=== PATIENT | male | born 1960 | race Caucasian/White ===

== ENCOUNTER 2018-04-13 10:35 | Inpatient (IN) | payer MEDICARE, MEDICAID ==
[~2018-04-13] VITALS: Ht 180.3 cm; Wt 180.5 kg
--- NOTE | ~2018-04-13 | DS ---
[place], [place] DISCHARGE SUMMARY NAME: ARIS SANDS JR [facility] #: [id number] UNIT #: [id number] ROOM: 309 DOCTOR: JANEY MONTANO CNP BIRTHDATE: [birth year] DOS: 04/18/2018 CHIEF COMPLAINT: "I'm ready to go home. HISTORY OF PRESENT ILLNESS: This is a 57-year-old white male who resides in an apartment by himself. He was admitted to the Behavioral Health Unit here at [facility] on 04/13/2018 due to suicidal ideations. He reported that he wanted to kill himself due to chronic all over pain and attempted to overdose on 2 Tylenol. He felt as if there were demons inside of him. Due to his emotional state, it was felt that inpatient stabilization was warranted, so he was admitted to the Behavioral Health Unit here at [facility]. SUMMARY OF HOSPITAL COURSE: The patient was admitted to the unit and was started on Cymbalta 30 mg a day. The Cymbalta was titrated over the course of time to 30 mg in the morning and 60 mg in the evening at bedtime for depression symptoms. He is on Neurontin 100 mg 3 times a day for his pain. He was also started on Latuda 40 mg daily and this was titrated to 60 mg daily to help augment the Cymbalta for the major depression. It was found that his vitamin D was low, so he was started on 50,000 units weekly and his B12 was also low, he was given 1000 mcg injection of B12. The patient has tolerated the medication changes well and has done extremely well. He has been social and attending individual and group activities. He attends to his own ADLs. There was no self-injurious behavior. There is no acting out, no yelling. He was not complaining of any type of auditory or visual hallucinations. He reports that he feels that his mood is much improved. He no longer has any suicidal ideation. He denies any medication side effects including sedation, somnolence and extrapyramidal symptoms or tardive dyskinesia. He has improved sufficiently to return home to his apartment. PSYCHIATRIC CONDITION AT DISCHARGE: The patient is dramatically improved. MEDICAL CONDITION AT DISCHARGE: The patient is alert and oriented x 4. His mood is strongly trending toward euthymia. His affect is more appropriate. There are no signs of simeon or hypomania. There are no auditory or visual hallucinations noted. No delusions or paranoia noted. His short, intermediate and long-term memories are fully intact. PHYSICAL CONDITION AT DISCHARGE: The patient has no acute physical issues that need to be addressed at this time. FUNCTIONAL AND EMOTIONAL CONDITION AT DISCHARGE: The patient is able to attend to his own ADLs and was interacting with individual and groups without difficulty. MEDICATIONS AT DISCHARGE: The patient will continue to take Depakote 1000 mg at bedtime and 500 mg in the morning. He will continue Cymbalta 30 mg in the morning and 60 mg at bedtime, and he will also continue Latuda 60 mg at bedtime. The patient is not on multiple antipsychotic medications. [place], [place] DISCHARGE SUMMARY NAME: ARIS SANDS JR [facility] #: [id number] UNIT #: [id number] ROOM: [facility] DOCTOR: JANEY MONTANO CNP BIRTHDATE: [birth year] FOLLOWUP CARE: Activity is return to normal activity. Nutrition and diet normal. The patient may continue normal diet. PSYCHIATRIC CONTINUING CARE PLAN: The patient will follow up with his psychiatrist on an outpatient basis. He reports that he has an appointment scheduled on 05/01/2018. PAIN ASSESSMENT: The patient continues to have some pain issues, but they are much improved, will follow up with a medical doctor for this. FINAL DIAGNOSIS: Major depressive disorder, recurrent. DISPOSITION: The patient is to return home to his apartment. His medications have been reconciled and the form has been filled out and signed. His prognosis is good. Janey Montano CNP CM:DISCHARG [id number] JANEY MONTANO CNP 04/18/18 1238 interface
--- NOTE | ~2018-04-13 | PR ---
[place], [place] PROGRESS NOTE NAME: ARIS SANDS JR UNIT #: [id number] ROOM: 309 DOCTOR: JANEY MONTANO CNP BIRTHDATE: [birth year] DOS: 04/15/2018 CHIEF COMPLAINT: "My leg hurts." SUMMARY OF THE VISIT: The patient was interviewed in the dining area after he had eaten breakfast. He continues to complain of leg pain. He reports that the pain is so bad that it made him feel as if he wanted to hurt himself a week ago. The patient reports that his sleep was fair last night and that his appetite is good. He reports that his mood continues to feel like it is up and down and that he is anxious at times. MENTAL STATUS EXAMINATION: The patient is alert and oriented x 4. His mood does seem to be somewhat anxious and depressed at this time. There are no signs of simeon or hypomania. There are no delusions or paranoia noted. No auditory or visual hallucinations noted. The patient continues to make occasional noises as he pursed lip breathes. PLAN: I am going to start the patient on vitamin D 50,000 units by mouth weekly due to vitamin D deficiency as well as B12 1000 mcg IM q. month due to B12 deficiency. We will continue his Cymbalta today at 30 mg twice a day and the Latuda 40 mg daily. We will plan to increase Cymbalta tomorrow to 90 mg daily. We will continue to engage the patient in individual and porter milieu activity and return him to the least restrictive environment when psychiatrically stable. Janey Montano CNP CM:PNTRANS [id number] JANEY MONTANO CNP 04/15/18 1026 interface
--- NOTE | ~2018-04-13 | EKG ---
[place], [place] ELECTROCARDIOGRAM REPORT NAME: ARIS SANDS JR UNIT #: [id number] ROOM: 309 DOCTOR: YAN DRAFT REPORT BIRTHDATE: [birth year] [facility] Test Date: 2018-04-13 Test Time: 19:19:33 Pat Name: ARIS SANDS Department: Room: 309 1 Gender: M Peanut Sorter: : 1960 Requested By: URBAN THAKKAR Order Number: [id number] Reading MD: Domenic Cruz MD Measurements Intervals [place] Rate: 122 P: 59 PA: 159 QRS: 44 QRSD: 87 T: 56 QT: 313 QTc: 446 Interpretive Statements Sinus tachycardia Baseline wander in lead(s) II,III,aVR,aVF Electronically Signed On 04-19-2018 10:42:59 PST by Domenic Cruz MD CM:EKGRPT:ELECTROCARDIOGRAM REPORT 1042 URBAN CARRERA DRAFT REPORT URBAN THAKKAR DO
--- NOTE | ~2018-04-13 | PR ---
[place], [place] PROGRESS NOTE [id number] #: [id number] ROOM: 309 DOCTOR: JANEY MONTANO CNP BIRTHDATE: [birth year] DOS: 04/17/2018 CHIEF COMPLAINT: "When can I go home." SUMMARY OF THE VISIT: The patient was interviewed as he sat on the edge of his bed in his room. He reports that he feels that he is doing very well and that his mood is improved. He denies any suicidal ideations. He denies any anxiety. He denies any auditory or visual hallucinations. He reports that he slept well last night and that his appetite has been good. MENTAL STATUS EXAMINATION: The patient is alert and oriented x 4. His mood seems to continue to be trending towards euthymia and he is definitely less depressed. There was no anxiety noted. There is no simeon or hypomania noted. No auditory or visual hallucinations noted. No delusions or paranoia noted. No agitation or aggression noted. PLAN: I am going to continue the patient's medications as prescribed. He reports that he has an appointment with his psychiatrist already scheduled for 05/01. We will plan to keep this appointment. We will continue to have the patient engage in individual and porter milieu activity. Continue fall and safety precautions. Plan to return to the least restrictive environment when psychiatrically stable, which will be as soon as tomorrow. Janey Montano CNP CM:PNTRANS [phone] JANEY MONTANO CNP 04/17/18 1602 interface
--- NOTE | ~2018-04-13 | WRIGHTHP ---
[place], [place] PATIENT HISTORY AND PHYSICAL EXAM NAME: ARIS SANDS JR [facility] #: [id number] UNIT #: [id number] ROOM: 309 DOCTOR: CALEB LÓPEZ MD BIRTHDATE: [birth year] DOS: 04/14/2018 CHIEF COMPLAINT: "I am just so depressed; I wanted to end it all." HISTORY OF PRESENT ILLNESS: This is a 57-year-old white male who was sent here from [facility]. The patient had presented to the Emergency Room after a reported suicide attempt of taking two Tylenol. The patient reported he was going to take more, but thought better of it and came to the Emergency Room. He reports ongoing depression now for months, stating the pain has also been one of the contributing factors to his depression. He has had poor sleep with difficulty falling asleep, sleep continuity disturbance, manager scheduling awakening, anergia, anhedonia, hopeless, helpless feelings, crying spells and inability to cope. The pain correlates with the time that his mother and he does not seem to be coping well with his stressors. He is admitted now to rule out organic factors, to attempt to stabilize on medication, to engage in individual and porter milieu activity, returning to the least restrictive environment when psychiatrically stable. PAST MEDICAL HISTORY: Remarkable for arthritis, asthma, COPD, coronary artery disease, hyperlipidemia, hypertension, morbid obesity, obstructive sleep apnea and seizure disorder. SOCIAL HISTORY: He does not drink alcohol, use illicit drugs or smoke cigarettes. ALLERGIES: He lists allergies to PENICILLIN, SULFA, AMOXICILLIN and NAPROXEN. STRENGTHS: Good verbal skills, ambulatory. WEAKNESSES: Poor coping skills, chronic psychiatric issues. MENTAL STATUS: He is alert and oriented. Mood does seem to be depressed. He is rather flat and constricted. He endorses multiple neurovegetative symptoms. He is able to contract for safety here and states he feels safe here. There is no hypomania or simeon. There is no gross psychosis. Memory is for the most part intact. DIAGNOSIS: Major depression, recurrent, severe. PLAN: I have already started him on Cymbalta after discontinuing his Zoloft. I will increase the Cymbalta to 30 mg twice daily, targeting 90-120 mg a day. I have discontinued his Geodon in lieu of Latuda to act as a mood stabilizer to augment the effectiveness of the antidepressant. I will also start him on Neurontin 100 mg 3 times a day to stabilize mood, decrease anxiety and help with pain control. I will recheck a valproic acid level in the morning. I am awaiting results on his vitamin D and B12 level to adjust them accordingly, engage in individual and porter milieu activity, returning to the least restrictive environment when psychiatrically stable. [place], [place] PATIENT HISTORY AND PHYSICAL EXAM NAME: SHAVON ABADPRIYAR [facility] UNIT #: [id number] ROOM: 309 DOCTOR: CALEB LÓPEZ MD BIRTHDATE: [birth year] CALEB LÓPEZ MD CM:HISPHYS:PATIENT HISTORY AND PHYSICAL EXAMINATION 0 CALEB LÓPEZ MD 04/14/18929 interface
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
[~2018-04-13 10:35] MED LIST: ACCUNEB 0.1.25 MG/1 INH; ANUSOL1 EACH PO; ARTANE2 MG PO; ASPIRIN81 M1 PO; ATIVAN0.5 MG PO; CARAFATE1 GM PO; CLEOCIN HCL300 MG PO; DEPAKOTE ER500 MG PO; GEODON20 M1 PO; GEODON20 MG PO; HYDROCODONE BIT1 T11 PO; MEDROL DOSEPAK4 MG PO; PRAVACHOL40 MG PO; PRAVASTATIN SOD20 MG PO; PRILOSEC40 MG PO; PROTONIX40 MG PO; PROVENTIL0.09 MG/AC IH; RISPERDAL3 MG PO; ROBAXIN500 MG PO; ROBITUSSIN DM 105 ML PO; SALINE 90 ML90 ML NAS; TOPROL XL25 MG PO; ULTRAM50 MG PO; VIBRAMYCIN100 MG PO; VICODIN 500 MG-1 TAB PO; ZITHROMAX Z PA250 MG PO; ZITHROMAX250 MG PO
[2018-04-13] MEDS ORDERED: Depakote500 MG PO (10:55)
[2018-04-13] MEDS ORDERED: ZOLOFT100 MG PO (10:58)
[2018-04-13] MEDS ORDERED: PROPRANOLOL HCL10 MG PO (10:58)
[2018-04-13] MEDS ORDERED: LASIX40 MG PO (10:59)
[2018-04-13] MEDS ORDERED: POTASSIUM CHLO20 ME3 PO (10:59)
[2018-04-13] MEDS ORDERED: IBU800 M2 PO (11:00)
[2018-04-13] MEDS ORDERED: PRILOSEC20 M1 PO (11:00)
[2018-04-13] MEDS ORDERED: ATIVAN1 MG PO (11:01)
[2018-04-13] MEDS ORDERED: IMDUR SA30 MG PO (11:01)
[2018-04-13] MEDS ORDERED: DELTASONE1 MG PO (11:08)
--- NOTE | 2018-04-13 14:54 | NUR ---
ARIS SANDS JR a 57 year old M admitted via wheel chair from the OTHER as a voluntary admission. Arrived on unit at 1454. ALLERGIES: PCN, SULFA, NAPROXEN. Vital signs are: [id number] 136/85, SPO2 96% RA. The client signed the following forms with stated understanding: Authorization For The Release of Medical Information, Clothing List, Consent to Voluntary Admission and Hospitalization, Consent and Release Forms/Receipt of Rights, Acknowledgement of Advance Directive Information, Behavioral Health Consent Form, and Informed Consent of Medications. Admitted under the services of Dr. MARIBEL GONSALEZ,[facility]. A search was conducted and hazardous articles were removed. Client was oriented to the unit. JEREMIAH VILLANUEVA
[2018-04-13 14:58] VITALS: BP 136/85
--- NOTE | 2018-04-13 14:58 | NUR ---
MESSAGE LEFT FOR STEFANIE MOREIRA RE: NEW ADMISSION.
[2018-04-13 15:02] VITALS: BP 136/85
--- NOTE | 2018-04-13 15:17 | NUR ---
SOKE WITH RE: PT SUCIDE RISK SCORE OF 27 AND PT ATTEMPT TO OVERDOSE ON 2 EXCERDIN AND PT STATED TO STAFF "I WAS GOING TO TAKE THE WHOLE BOTTLE BUT I STOPPED." ADVISED DR THAT PT IS FUTURE FOCUSED "TO GET BETTER AND GET BACK HOME, NO PAIN, NO MORE PANIC ATTACKS, AND STAY IN MY APARTMENT. I DON'T WANT TO GO TO A PENITENTIARY I WANT TO STAY IN MY APARTMENT." PER CONTIUE ROUTINE SAFETY CHECKS. PT PLACED IN ROOM 309, CLOSE TO NURSES'S STATION. PT BELONGINGS SEARCHED AND INVENTORY CONDUCTED, NO ISSUES NOTED. WILL CONTINUE TO MONITOR.
--- NOTE | 2018-04-13 15:31 | NUR ---
SPOKE WITH AT [phone] RE: CONSULT FOR MEDICAL MANAGEMENT, PER PLACE CONSULT UNDER HIMSELF.
--- NOTE | 2018-04-13 16:55 | NUR ---
psychosocial hx completed this date.
[2018-04-13 19:10] LABS: BASO % 0.3 % (0.0-1.0); EOS # 0.1 10*3/uL (0.0-0.4); EOS % 1.7 % (1.0-4.0); HEMATOCRIT 37.8 % (42.0-52.0); HEMOGLOBIN 12.4 g/dl (14.0-18.0); LYMPH # 1.4 10*3/uL (1.3-4.4); MEAN CELL VOLUME 92.9 fl (80.0-94.0); MEAN CORPUSCULAR HGB 30.5 pg (27.0-31.0); MEAN CORPUSCULAR HGB CONC 32.8 g/dl (33.0-37.0); MEAN PLATELET VOLUME 10.9 fl (9.6-12.3); MONO # 0.5 10*3/uL (0.1-1.0); MONO % 6.7 % (3.0-9.0); NEUT # 5.1 10*3/uL (2.3-7.9); PLATELET COUNT AUTOMATED 149 10*3/uL (130-400); RED BLOOD COUNT 4.07 10*6/uL (4.50-5.90); RED CELL DISTRI WIDTH 13.9 % (0-14.5); WHITE BLOOD COUNT 7.1 10*3/uL (4.8-10.8)
--- NOTE | 2018-04-13 19:22 | NUR ---
EKG COMPLETED AT THIS TIME. DR THAKKAR UPDATED ON RESULTS. STATED HE IS RECONCILING HOME MEDS AT THIS TIME AND WILL PLACE AN ORDER FOR THE ELEVATED HEART RATE OF 122.
[2018-04-13 19:27] LABS: ALBUMIN 3.1 gm/dl (3.1-4.5); ALKALINE PHOSPHATASE 64 U/L (45-117); BUN 8 mg/dl (7-24); CHLORIDE 105 mmol/L (98-107); CREATININE 0.95 mg/dL (0.70-1.30); POTASSIUM 3.6 mmol/L (3.5-5.1); SGOT/AST 13 IU/L (3-35); SGPT/ALT 19 U/L (12-78); SODIUM 141 mmol/L (136-145); TOTAL PROTEIN 6.4 gm/dL (6.4-8.2)
[2018-04-13 19:58] VITALS: BP 148/67
--- NOTE | 2018-04-13 20:24 | NUR ---
PT C/O PAIN TO LEFT SIDE OF BODY WITH A RATING OF 7 OUT OF 10. OFFERED PRN TYLENOL. PT INITIAL REFUSED. WHEN ASKED AGAIN PT STATED HE WOULD TAKE THE TYLENOL. PRN TYLENOL 650 MG GIVEN AT THIS TIME. WILL MONITOR EFFECTIVENESS OF MEDICATION.
--- NOTE | 2018-04-13 20:31 | NUR ---
P: PAIN TO LEFT SIDE OF BODY I: 1:1 PROVIDED, ASSESSED FOR PAIN. OFFER PRN TYLENOL. IDENTIFY TECHNIQUES TO ALLEVIATE PAIN. R: PT STATED HIS PAIN WAS 7/10. TYLENOL PROVIDED AT 2017. PT ASSISTED WITH IDENTIFYING TECHNIQUES TO ALLEVIATE PAIN. P: CONTINUE TO ASSESS FOR PAIN. CONTINUE TO ASSIST PT IN IDENTIFYING TECHNIQUES TO ALLEVIATE PAIN. PT DENIED SI AT THIS TIME. CONTRACTED FOR SAFETY. MEDICATION COMPLAINT WITHOUT DIFFICULTY. CONTINUES TO MAKE INAPPROPRIATE NOISES. PT REQUESTED TO SLEEP WITHOUT CLOTHING. PT AGREED TO REMAIN COVERED WITH BLANKETS. PT INQUIRED ABOUT LENGTH OF STAY ON THE UNIT AND THIS WAS EXPLAINED TO THE PT THIS IS UP TO THE DR AND HOW FAST HE IS STABILIZED ON MEDICATION.
--- NOTE | 2018-04-13 21:00 | NUR ---
24 HR chart check completed.
--- NOTE | 2018-04-13 21:30 | NUR ---
PT RESTING QUIETLY IN BED. NO S/S OF PAIN NOTED. WILL CONTINUE TO MONITOR.
--- NOTE | 2018-04-14 02:13 | NUR ---
PT AWAKE AND SITTING IN ROOM. CALM . PT PROVIDED WITH DRINK AT THIS TIME.
--- NOTE | 2018-04-14 05:37 | NUR ---
PT SLEPT APPROXIMATELY 8 HOURS THIS SHIFT.
[2018-04-14 07:36] VITALS: BP 166/72
[2018-04-14 07:45] LABS: BASO % 0.5 % (0.0-1.0); EOS # 0.1 10*3/uL (0.0-0.4); EOS % 1.6 % (1.0-4.0); HEMATOCRIT 38.3 % (42.0-52.0); HEMOGLOBIN 12.7 g/dl (14.0-18.0); LYMPH # 1.5 10*3/uL (1.3-4.4); LYMPH % 23.4 % (27.0-41.0); MEAN CELL VOLUME 92.5 fl (80.0-94.0); MEAN CORPUSCULAR HGB 30.7 pg (27.0-31.0); MEAN CORPUSCULAR HGB CONC 33.2 g/dl (33.0-37.0); MEAN PLATELET VOLUME 11.1 fl (9.6-12.3); MONO # 0.5 10*3/uL (0.1-1.0); MONO % 7.7 % (3.0-9.0); NEUT # 4.3 10*3/uL (2.3-7.9); NEUT % 66.6 % (47.0-73.0); PLATELET COUNT AUTOMATED 157 10*3/uL (130-400); RED BLOOD COUNT 4.14 10*6/uL (4.50-5.90); RED CELL DISTRI WIDTH 14.1 % (0-14.5); WHITE BLOOD COUNT 6.4 10*3/uL (4.8-10.8)
[2018-04-14 08:20] LABS: ALKALINE PHOSPHATASE 64 U/L (45-117); BUN 8 mg/dl (7-24); CHLORIDE 104 mmol/L (98-107); CHOLESTEROL 219 mg/dL (<200); CREATININE 0.75 mg/dL (0.70-1.30); HDL CHOLESTEROL 40 mg/dl (40-60); LDL CHOLESTEROL 141 mg/dL (9-159); POTASSIUM 3.7 mmol/L (3.5-5.1); SGOT/AST 14 IU/L (3-35); SGPT/ALT 18 U/L (12-78); SODIUM 139 mmol/L (136-145); TOTAL PROTEIN 6.5 gm/dL (6.4-8.2); TRIGLYCERIDES 191 mg/dl (<150); VLDL CHOLESTEROL 38 mg/dL (6-40)
--- NOTE | 2018-04-14 08:20 | NUR ---
PRN TYLENOL 650MG GIVEN FOR PT C/O PAIN "ALL OVER". PT REPORTS PAIN IS "LIKE A 4 OR 5" OUT OF 10
[2018-04-14 08:29] LABS: VALPROIC ACID (DEPAKENE) 19.4 ug/ml (50-100)
--- NOTE | 2018-04-14 08:40 | NUR ---
DR. RENE AND TEAM ON UNIT AT THIS TIME.
[2018-04-14 09:00] LABS: VITAMIN D, 25-HYDROXY 19.3 ng/mL (30-100)
--- NOTE | 2018-04-14 12:31 | NUR ---
DR. BYNUM CALLED RE:PT HOME MED LIST, AND HOW THE MEDS WERE VERIFIFED. ADVISED THAT PT CAME FROM [facility] AND THE MEDS THEY HAD LISTED WERE ATIVAN, DEPAKOTE, GEODON, PREDNISONE AND TOPROLOL. ADVISED THAT THIS NURSE CONTACTED [facility], [facility], AND SPOKE STEPH THE PHARMACIST RE: AN UPDATED MED LIST WHICH INCLUDED DEPAKOTE, TOPROL, PROPANOLOL, ZOLFT, POTASSIUM, LASIX, PRILOSEC, IBUPROFEN AND IMDUR. NO FURTHER ORDERS AT THIS TIME.
--- NOTE | 2018-04-14 15:02 | NUR ---
PM GROUP/GAMES PT ATTENDED THE FIRST PART OF GROUP BUT DID NOT PARTICIPATE. PT DID NOT EXPRESS ANY HOPELESSNESS OR DEPRESSION AT THIS TIME. PT WILL CONTINUE TO BE ENCOURAGED TO ATTEND AND PARTICIPATE IN GROUP.
[2018-04-14 19:46] VITALS: BP 134/88
--- NOTE | 2018-04-14 22:04 | NUR ---
P: INAPPROPRIATE NOISES I: 1:1, ALLOWED PT TIME TO VENT FEELINGS. ENCOURAGE MEDICATION COMPLAINCE, ENCOURAGED PT TO GO TO QUIET ROOM OR HIS ROOM TO MAKE INAPPROPRIATE NOISES. R: PT VERBALLY AGREED TO RETURN TO HIS ROOM TO MAKE INAPPROPRIATE NOICES. MEDICATION COMPLIANT. PT STATED HE MAKES THE NOISES TO GET RID OF THE DEAMONS. P: CONTINUE TO OFFER 1:1 TO ALLOW PT TIME TO VENT FEELINGS. CONTINUE TO ENCOURAGE MEDICATION COMPLIANCE AND ENCOURAGE PT TO GO TO A PRIVATE ROOM TO MAKE INAPPROPRIATE NOISES.
--- NOTE | 2018-04-14 22:30 | NUR ---
24 HR chart check completed.
--- NOTE | 2018-04-15 05:59 | NUR ---
PHYSICAL THERAPY Nursing screen recieved. PT orders also recieved. Thank you. Poppy Yarbrough,PT
--- NOTE | 2018-04-15 06:01 | NUR ---
PT SLEPT APPROXIMATELY 2 HOURS THIS SHIFT INTERRUPTED.
[2018-04-15 07:20] VITALS: BP 123/78
--- NOTE | 2018-04-15 08:00 | NUR ---
PHYSICAL THERAPY PAtient evaluated on 3, full evaluation to follow. Continue with PT as per plan of care with fall, unit three and significant edema LLE precautions. Patient issued unit wh walker to utilize until edema and pain decrease LLE. Home, as prior, for d/c planning with home health RN, PT and aides recommended. PAtient is moderate complexity via chart review, tests and evaluation: 59792. Thank you for this referral. Poppy Yarbrough,PT
--- NOTE | 2018-04-15 12:58 | NUR ---
Sameer was evaluated by occupational therapy this date to assess his ADL and functional transfer assist level, strength, and balance. Sameer likes to be called Narcisa. He c/o pain in his left calf and left shoulder with activity and weight bearing, 4 Thaddeus Sesay. He frequently blows air through his lips with all movements and ADL activities. Per NSG, he does this throughout the day randomly with or without exertion. He requires increased assist with lowerbody dressing secondary to left sided body pain. Continue OT until D/C home with [facility]. Lindsay Harrison OTR/L
--- NOTE | 2018-04-15 13:31 | NUR ---
PATIENT IS ALERT AND ORIENT TO PERSON, PLACE, TIME AND SITUATION; ABLE TO VOICE NEEDS. MOOD IS DEPRESSED, STATES HE IS FEELING BETTER. DENIES ANY HALLUCINATIONS, DELUSIONS, HI/SI. STATES THAT LEFT LOWER LEG ACHES, PROVIDED PATIENT WITH ROUTINE MEDICATIONS FOR PAIN. PREOCCUPIED WITH LEFT SIDED PAIN AND WHEN HE IS GOING HOME. PATIENT HAS HAD A COUPLE OF EPISODES OF GROWLING AND MAKING LIP NOISES WITH DEEP BREATHING, STATES HE DOES NOT KNOW WHY HE DOES IT. STATES HE HAS BEEN DOING IT EVER SINCE IS MOM . REDIRECT NEEDED AND PATIENT BECOMES AWARE AND STOPPED THIS THESE TYPES OF NOISES. INDEPENDENT WITH ACTIVITIES OF DAILY LIVING, CONTINENT OF BOWEL AND BLADDER. SET UP FOR MEALS, INTAKES ARE GOOD WITH ADEQUATE FLUID. AMBULATORY WITH STEADY GAIT. MEDICATION COMPLAINT WITH EDUCATION PROVIDED. Q 15 MINUTE SAFETY CHECKS MAINTAINED. INTERACTIVE WITH STAFF. VENOUS ULTRASOUND OF LLE COMPLETED AND DR. BYNUM NOTIFIED OF RESULTS. CONTINUE TO MONITOR MOOD AND THOUGHTS OF SUICIDAL IDEATIONS. PROVIDE ONE ON ONE AND REDIRECTION NEEDED.
--- NOTE | 2018-04-15 15:28 | NUR ---
Shift chart check completed.
--- NOTE | 2018-04-15 15:43 | NUR ---
PATIENT RECIEVED VIT B 12 1000MCG IM INJECTION TO RIGHT DELTOID AND TOLERATED WELL.
--- NOTE | 2018-04-15 17:28 | NUR ---
P: PURSE LIP BREATHING RESEMBLING HORSE NOISE I: PROVIDING ONE ON ONE, REDIRECTION, MUSIC THERAPY WITH REALAXATION TECHNIQUES AND AMBULATION WITH STAFF R: EFFECTIVE P: CONTINUE NON-PHARMALOGICAL INTERVENTIONS
--- NOTE | 2018-04-15 17:43 | NUR ---
AMBULATED WITH PT DOWN HALLWAY WITH WHEELED WALKER MAKING 2 LAPS BEFORE PT BECAME FATIGUED. DURING THIS TIME PT WOULD RANDOMLY DO BREATHING WITH "FLACCID" LIP MOVEMENTS BUT WHEN REMINDED TO NOT HAVE " LAZY LIPS" AND HOW TO DO PURSED LIP BREATHING PT WOULD MAKE A CONSCIENCE BREATHING PATTERN WHICH HE SAID HELPED HIM ALOT. CONTINUE TO REDIRECT NEEDED, PT ALSO HAS BEEN REDIRECTED FREQUENTLY TO KEEP SOCKS ON HIS FEET, PT STATES HE CANNOT PLACE THEM ON HIMSELF AND HIS SHOES SOMETIMES HURT HIS FEET. NURSES PLACED SOCKS BACK ON FEET ON 2 DIFFERENT OCCASIONNS THIS EVENING
[2018-04-15 19:41] VITALS: BP 123/67
--- NOTE | 2018-04-15 21:47 | NUR ---
24 HR chart check completed.
--- NOTE | 2018-04-15 23:01 | NUR ---
P: INAPPRPRIATE NOISES I: 1:1, REDIRECT PT TO PT ROOM OR QUIET ROOM, ALLOW PT TIME TO VENT FEELINGS, ALLOW PT TO WATCH Perfect Audience GAME. R: EFECTIVE DURING THE FOOTBALL GAME. PT STARTED MAKING INAPPROPRIATE NOISES ONCE HE WAS IN HIS ROOM. P: CONTINUE TO OFFER 1:1 AND TIME FOR PT TO VENT FEELINGS. CONTINUE TO REDIRECT PT WHEN NEEDED. CONTINUE TO ASSIST PT IN IDENTIFYING NONPHARMACOLOGICAL TECHNIQUES TO AVOID MAKING THESE SOUNDS.
--- NOTE | 2018-04-16 00:23 | NUR ---
24 HR chart check completed.
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
[2018-04-16 06:38] LABS: BUN 10 mg/dl (7-24); CHLORIDE 100 mmol/L (98-107); CREATININE 0.72 mg/dL (0.70-1.30); POTASSIUM 3.8 mmol/L (3.5-5.1); SODIUM 137 mmol/L (136-145)
--- NOTE | 2018-04-16 06:52 | NUR ---
PT SLEPT APPROXIMATELY 4 HOURS THIS SHIFT. Q15 MINUTE SAFETY CHECKS MAINTAINED.
[2018-04-16 07:48] VITALS: BP 139/74
--- NOTE | 2018-04-16 09:08 | NUR ---
LOVENOX GIVE PER ORDER IN LEFT LOWER QUADERANT. PATIENT TOLERATED THE PROCEDURE VERY WELL.
--- NOTE | 2018-04-16 10:20 | NUR ---
DR RENE ON UNIT TO SEE PATIENT
--- NOTE | 2018-04-16 12:00 | NUR ---
Shift chart check completed.
--- NOTE | 2018-04-16 12:16 | NUR ---
P- INAPPROPRIATE NOISES, PURSED LIP BREATHING SOUNDING LIKE A HORSE. I- OFFERED A QUIET AND PRIVATE AREA TO MAKE NOISES. 1:1 TO ALLOW TO TALK, VENT FEELINGS. DIVERSIONAL ACTIVITIES PROVIDED. ASSESSED FOR ANY MORE SI AND HAD VERBAL CONTRACT FOR SAFETY. R- PATIENT DENIES HAVING ANY HALLUCINATIONS OR DELUSIONS AT THIS TIME. HE PREVIOUSLY TOLD A NURSE HE MAKES THESE NOISES TO SCARE OFF THE DEMONS, DENIES THIS TO THIS NURSE. DENIES SI AT THIS TIME, AGREED TO VERBALLY CONTRACT FOR SAFETY. DIVERSIONAL ACTIVITIES WERE EFFECTIVE FOR A LITTLE BIT, WOULD START MAKING INAPPROPRIATE NOISES AGAIN WITH HIS MOUTH. P- CONTINUE TO MONITOR FOR ANYMORE SUICIDAL IDEATION AND HAVE VERBALLY CONTRACT FOR SAFETY EVERY SHIFT. MONITOR INAPPROPRIATE NOISES AND PROVIDE DIVERSIONAL ACTIVITIES, 1:1 TO EXPRESS FEELINGS AND TO TALK, AND A PRIVATE PLACE TO GO. MONITOR FOR HALLUCINATIONS OR HEARING DEMONS. Q15 MINUTE CHECKS MAINTAIN FOR SAFETY. SEIZURE PRECAUTIONS INPLACE.
[2018-04-16 20:22] VITALS: BP 147/91
--- NOTE | 2018-04-16 23:34 | NUR ---
PT WITHDRAWN TO SELF, GUARDED. PT ENCOURAGED TO VERBALIZE FEELINGS. PT GIVEN 1:1. ENCOURAGED TO COME OUT FOR HS SNACK AND TV WITH PEERS. PT AGREEABLE TO COMING OUT OF ROOM FOR SNACK. STATED "I MEAN, I THINK I AM BETTER THAN WHEN I GOT HERE. I THINK MY LEG IS HEALING, BUT I DON'T KNOW" CONTINUE TO ENCOURAGE MEDICATION COMPLIANCE, ENCOURAGE PARTICIPATION IN GROUP THERAPY/ACTIVITY FOR SOCIALIZATION AND SUPPORT. ENCOURAGE PT TO VERBALIZE FEELINGS WITH STAFF.
--- NOTE | 2018-04-17 06:36 | NUR ---
PT SLEPT PAST 2130 WITH SOME BATHROOM AWAKENINGS. PT WOKE FOR ONE HOUR [phone] TO SIT IN QUIET ROOM. PT REDIRECTED SELF BACK TO BED AND SLEPT UNTIL 0600
--- NOTE | 2018-04-17 07:15 | NUR ---
PHYSICAL THERAPY Patient seen this am 1:1 for therapy visit and was sitting in activity room chair upon therapist arrival. Patient reports mild L medial ankle pain / stiffness which he states comes and goes at times. Patient instructed and performed several seated ankle / B LE therex x 10 reps each, followed by several sit to stand transfers, SBA x 1. Patient ambulates with use wh walker support to promote smoother tawana with decreased c/o L ankle pain, SBA, 75'x 2, demonstrating a little increased fatigue upon return to activity room chair. Patient stated his ankle felt better following gait ex and remained in chair under [facility] staff Supervision. Will continue per POC as tolerated, total treatment time 23 minutes. Chepe Modi, STREET LIGHT REPAIRER
[2018-04-17 07:18] VITALS: BP 135/74
--- NOTE | 2018-04-17 07:35 | NUR ---
OT NOTE Pt was seen this A.M. 1:1 for 15 minute OT session. Upon arrival pt was sitting upright in chair in dining room, pt identified by name and . Pt had reports of L leg pain however did not rate on 0-10 pain scale. While sitting in chair requested for pt to vanessa socks and pt reported he was unable. Pt trialed and was unable to complete full forward flexion leaving him unable to reach his feet. Trialed compensatory strategies of bring his leg up to his other knee and pt was unable to bring his leg up all the way still being unable to reach. Pt required maxA for donning socks. Pt doffed socks with supervision while compensating by using his other foot and pulling sock off. Functional mobility completed to his bathroom with SBA and use of w/w for UE support. There pt stood at commode and completed toileting task with distant supervision followed by standing sink side while washing his hands and face with SBA. Pt was able to tolerate sink side static standing for aprox 4 minutes before going back to dining room to sit. Pt was left sitting upright in dining room chair under [facility] staff supervision. Continue with rec D/C plan to home with home health. KIA Steele/Driss
--- NOTE | 2018-04-17 09:30 | NUR ---
ON UNIT TO ASSESS PT.
--- NOTE | 2018-04-17 11:03 | NUR ---
PATIENT IS ALERT TO PERSON, PLACE, TIME AND SITUATION; ABLE TO VOICE NEEDS. MOOD IS STABLE. DENIES ANY HALLUCINATIONS, DELUSIONS, HI/SI OR PAIN. COMPLAINS OF LEFT FOOT DISCOMFORT. PATIENT WORKING WITH PHYSICAL THERAPY DURING AMBULATIONS USING WALKER. NO FURTHER COMPLAINT OF PAIN. INDEPENDENT WITH ACTIVITIES OF DAILY LIVING, CONTINENT OF BOWEL AND BLADDER. SET UP FOR MEALS, INTAKES ARE GOOD WITH ADEQUATE FLUIDS. NO DEEP BREATHING WITH MAKING LOUD NOISES DURING EXHALING RESEMBLING A HORSE NOTED. PATIENT INTERACTIVE WITH STAFF AND PARTICIPATES IN GROUP SESSION. MEDICATION COMPLAINT WITH EDUCATION PROVIDED. Q 15 MINUTES SAFETY CHECKS MAINTAINED. CONTINUE TO MONITOR FOR SUICIDAL IDEATIONS, PROVIDE ONE ON ONE. PATIENT STATES MEDICATIONS ARE HELPING AND HE IS READY TO GO HOME.
--- NOTE | 2018-04-17 11:37 | NUR ---
AM GROUP THERAPY SPENT 1:1 TIME WITH PT. PT OPENLY DISCUSSED ISSUES WITH CHILDHOOD AND REASONING FOR SUICIDAL IDEATIONS. PT COGNITIVE LEVEL LOW AND CHILDLIKE. PT EXPRESSED INTERRESTS IN MOVIES AND VIDEO GAMES. PT COPING SKILLS FOR ANXIETY HAVE BEEN WALKING UNTIL RECENT COMPLAINT OF PAIN. PT EXPRESSED WILLINGNESS TO TRY NEW ACTIVITIES. PT WILL BE DISCHARGED FROM THE UNIT TOMORROW.
--- NOTE | 2018-04-17 11:46 | NUR ---
DR. ALLEN NOTIFIED OF PODIATRY CONSULT FOR LEFT ANKLE PAIN AND REQUESTING A BRACE.
--- NOTE | 2018-04-17 15:03 | NUR ---
PM GROUP/MUSIC THERAPY PT CHOSE NOT TO ATTEND AFTERNOON GROUP. PT STATED,"MY LEG IS REALLY HURTING, I NEED TO STAY OFF OF MY FEET." PT WAS ENCOURAGED AND TOLD HIS FEET COULD BE ELEVATED, BUT PT REFUSED. PT REMAINED IN HIS ROOM. PT WILL BE DISCHARGED FROM THE UNIT TOMORROW.
[2018-04-17 19:12] VITALS: BP 137/89
--- NOTE | 2018-04-17 20:53 | NUR ---
TYLENOL 650MG GIVEN FOR C/O LEFT ANKLE PAIN.
--- NOTE | 2018-04-17 22:00 | NUR ---
PT CURRENTLY RESTING IN ROOM. PRN EFFECTIVE AT THIS TIME.
--- NOTE | 2018-04-18 05:15 | NUR ---
PT RESTLESS, WITHDRAWN TO SELF. ENCOURAGE PT TO INTERACT WITH STAFF AND PEERS. ENCOURAGE VERBALIZATIONS OF THOUGHT AND FEELINGS, PROVIDING EMOTIONAL SUPPORT. PT SITTING IN ROCKING CHAIR IN QUIET ROOM, ROCKING REPEATEDLY, MAKING BIZARRE NOISES. PT DID VERBALIZE NEEDS TO STAFF, REQUESTING SNACK AND DRINK AT THIS TIME, PROVIDED BY STAFF. CONTINUE TO ENCOURAGE INTERACTION WITH PEERS. ENCOURAGE PT TO ATTEND GROUP THERAPY/ACTIVITIES. ENCOURAGE CONTINUED MEDICATION COMPLIANCE. ENCOURAGE VERBALIZATIONS OF WANTS/NEEDS WELL THOUGHTS AND FEELINGS.
--- NOTE | 2018-04-18 07:12 | NUR ---
OT NOTE Pt was seen this A.M. 1:1 for 17 minute OT session. Upon arrival pt was sitting upright in dining room, pt identified by name and . Pt had reports of L ankle pain, however did not rate on 0-10 pain scale. Requested for pt to vanessa his socks and pt stated "I can't". Trialed compensatory stratagies and pt still required maxA for donning his socks due to poor forward flexion and being unable to cross leg over his knee. Functional mobility completed to his bedroom with SBA and use of w/w for UE support. There he stood sink side while washing his hands and face with SBA after set-up. Pt was able to tolerate aprox 5 minutes of static standing before sitting due to fatigue and ankle pain. Pt returned to chair in dining room where he was left under [facility] staff supervision. Continue with rec D/C plan to home with home health. KIA Steele/Driss
[2018-04-18 07:48] VITALS: BP 128/56
--- NOTE | 2018-04-18 09:08 | NUR ---
DR BYNUM NOTIFIED OF PATIENT BEING DISCHARGED. DR GHOSH TO BE UPDATED ON PATIENT'S DISCHARGE.
[2018-04-18] MEDS ORDERED: DIVALPROEX SOD500 M1 PO ×2 (10:35)
[2018-04-18] MEDS ORDERED: DULOXETINE HCL60 MG PO (10:35)
[2018-04-18] MEDS ORDERED: LATU60TA PO (10:35)
[2018-04-18] MEDS ORDERED: DULOXETINE HCL30 MG PO (10:35)
--- NOTE | 2018-04-18 10:38 | NUR ---
Treatment Plan meeting with Marga MARCOS, RN, AT and Felling Machine Operator. Plan for discharge today. Pt. to return home. Follow up appointments have been scheduled and Grounds Manager from [employer] will transport patient home with order picker time 1:00 p.m.
--- NOTE | 2018-04-18 11:31 | NUR ---
AM GROUP THERAPY PT CHOSE NOT TO ATTEND GROUP INITIALLY BUT JOINED WITH LESS THAN AN HOUR LEFT. PT SAT QUIETLY AND LISTENED TO THE GROUP DISCUSSION. PT EXPRESSED NO SUICIDAL IDEATIONS DURING GROUP. PT IS SET TO BE DISCHARGED AT 1PM TODAY.
--- NOTE | 2018-04-18 11:35 | NUR ---
PHYSICAL THERAPY Patient is set to be discharged at 1 pm today. No therapy provided for this reason. EMILY VALENTIN AUDIO/VIDEO ENGINEER
[2018-04-18] MEDS ORDERED: VITAMIN D5000 UNIT PO (11:42)
--- NOTE | 2018-04-18 14:40 | NUR ---
PATIENT READY FOR DISCHARGE, ALL BELONGING GATHERED, REVIEWED DISCHARGE INSTRUCTIONS AND SIGNED. PATIENT'S YARDAGE CONTROL OPERATOR FORMING ASSISTANCE PRESENT. PATIENT ASSISTED OFF UNIT WITH STAFF TO PRIVATE VEHICLE.
--- NOTE | 2018-04-18 15:44 | NUR ---
PHYSICAL THERAPY CO-SIGN I approve of the Phyical Therapy notes written above. ALLISON JUNE PT
--- NOTE | 2018-04-22 08:11 | NUR ---
OCCUPATIONAL THERAPY CO-SIGN I approve of the Occupational Therapy notes written above. MENDY MATTA OTR/Driss
== END 2018-04-18 14:40 | disposition home or self-care (01) | DRG 885 ==
LOC: 3N 10:35
PROVIDERS: Internal Medicine; Student in an Organized Health Care Education/Training Program; ADMIT Psychiatry & Neurology Psychiatry
DX: F33.9 Major depressive disorder, recurrent, unspecified (principal); E44.0 Moderate protein-calorie malnutrition; Z68.43 Body mass index [BMI] 50.0-59.9, adult; F41.9 Anxiety disorder, unspecified; M19.90 Unspecified osteoarthritis, unspecified site; J44.9 Chronic obstructive pulmonary disease, unspecified; I25.10 Atherosclerotic heart disease of native coronary artery without angina pectoris; E78.5 Hyperlipidemia, unspecified; I10 Essential (primary) hypertension; E66.01 Morbid (severe) obesity due to excess calories; G47.33 Obstructive sleep apnea (adult) (pediatric); G40.909 Epilepsy, unspecified, not intractable, without status epilepticus; F17.210 Nicotine dependence, cigarettes, uncomplicated; Z83.3 Family history of diabetes mellitus; Z82.49 Family history of ischemic heart disease and other diseases of the circulatory system; Z82.3 Family history of stroke; Z88.0 Allergy status to penicillin; Z88.2 Allergy status to sulfonamides; Z88.1 Allergy status to other antibiotic agents

== ENCOUNTER → 2024-02-08 | Outpatient (CLI) | payer MEDICARE, MEDICAID ==
[~2024-02-08] MED LIST changes: +ATIVAN1 MG PO; +DELTASONE1 MG PO; +DIVALPROEX SOD500 M1 PO; +DULOXETINE HCL30 MG PO; +DULOXETINE HCL60 MG PO; +Depakote500 MG PO; +IBU800 M2 PO; +IMDUR SA30 MG PO; +LASIX40 MG PO; +LATU60TA PO; +POTASSIUM CHLO20 ME3 PO; +PRILOSEC20 M1 PO; +PROPRANOLOL HCL10 MG PO; +VITAMIN D5000 UNIT PO; +ZOLOFT100 MG PO
== END | disposition home or self-care (01) ==
LOC: RAD 12-24 09:00
PROVIDERS: ATTEND Internal Medicine
DX: Z13.820 Encounter for screening for osteoporosis (principal); M85.89 Other specified disorders of bone density and structure, multiple sites; M25.552 Pain in left hip; F03.90 Unspecified dementia, unspecified severity, without behavioral disturbance, psychotic disturbance, mood disturbance, and anxiety; E11.9 Type 2 diabetes mellitus without complications; J45.909 Unspecified asthma, uncomplicated; R25.1 Tremor, unspecified